=== PATIENT | male | born 1980 | race Caucasian/White ===

== ENCOUNTER 2024-10-13 09:45 | Emergency (ER) | payer OTHER ==
[~2024-10-13] VITALS: Ht 160 cm; Wt 90.7 kg
[2024-10-13] MEDS ORDERED: LIDOCAINE 0.5% HCL 50 ML VIAL ONE (12:46)
[2024-10-13] MEDS ORDERED: CLIN300C12 PO (13:04)
[2024-10-13] MEDS ORDERED: CLIN30GE2 TP (13:04)
[2024-10-13 13:20] VITALS: BP 120/90; TEMP 98.3; O2SAT 99
== END 2024-10-13 13:22 | disposition home or self-care (01) ==
LOC: ER 09:58
DX: L02.412 Cutaneous abscess of left axilla (principal)
CPT/HCPCS: 99283; 10060; J3490